=== PATIENT | female | born 1995 | race African-American/Black ===

== ENCOUNTER 2020-03-07 06:34 | Inpatient (IN) ==
[2020-03-07] MEDS ORDERED: ONDANSETRON 4 MG/2 ML VIAL IV PRN (07:12)
[2020-03-07] MEDS ORDERED: AMPICILLIN INJ 2,000 MG in SODIUM CHLORIDE 0.9% 100 ML IV ONE (07:16)
[2020-03-07] MEDS ORDERED: OXYTOCIN 20 UNIT in SODIUM CHLORIDE 0.9% 1,000 ML IV SCH (07:30)
[2020-03-07] MEDS ORDERED: LACTATED RINGERS 1,000 ML IV SCH (07:30)
[2020-03-07 07:41] LABS: Basophils % 0.2 % (0.0-0.8); Eosinophils % 0.1 % (0.00-10.9); Hematocrit 36.4 VOL% (35.7-47.0); Hemoglobin 12.1 GM/DL (12.0-16.0); Immature Granulocytes Absolute 0.17 #; Lymphocytes # 2.2 10*3/uL (1.4-4.0); Mean Corpuscular HGB Conc 33.2 GM/DL (32-36); Mean Corpuscular Volume 85.6 FL (87-102); Mean Platelet Volume 10.2 FL (9.6-12.0); Monocytes % 7.5 % (1.7-12.7); Neutrophils % 78.2 % (38.7-73.9); Platelet Count 247 T/CUMM (130-400); Red Blood Count 4.25 MC/CUMM (3.8-5.5); Red Cell Distribution Width 14.7 % (9.3-17.3); White Blood Count 16.6 T/CUMM (4-12)
[2020-03-07] MEDS ORDERED: SODIUM CHLORIDE 0.9% 100 ML IV ONE (07:41)
[2020-03-07] MEDS ORDERED: LACTATED RINGERS 250 ML IV PRN (07:55)
[2020-03-07] MEDS ORDERED: ePHEDrine 50 MG/ML VIAL IV PRN (07:55)
[2020-03-07] MEDS ORDERED: FAMOTIDINE 20 MG/2 ML VIAL IV ONE (07:55)
[2020-03-07] MEDS ORDERED: CITRIC ACID/SODIUM CITRATE 30 ML UDCUP PO ONE (07:55)
[2020-03-07] MEDS ORDERED: diphenhydrAMINE 50 MG/1 ML VIAL IV PRN ×2 (07:55)
[2020-03-07] MEDS ORDERED: NALOXONE 0.4 MG/ML VIAL IV PRN (07:55)
[2020-03-07] MEDS ORDERED: LACTATED RINGERS 1,000 ML IV ONE (07:55)
[2020-03-07] MEDS ORDERED: fentaNYL 2 MCG/ROPIV 0.2% EPID 100 ML EPIDURAL SCH (08:00)
[2020-03-07 08:04] LABS: Bilirubin,Total 0.4 MG/DL (0.2-1.0); Calcium 8.2 MG/DL (8.5-10.1); Total Protein 6.9 G/DL (6.4-8.3)
[2020-03-07] MEDS ORDERED: OXYTOCIN/LR 20 UNIT/1,000 ML BAG IV ONE (08:18)
[2020-03-07] MEDS ORDERED: LIDOCAINE 1% 50 ML VIAL ONE (08:20)
[2020-03-07] MEDS ORDERED: CARBOPROST TROMETHAMINE 250 MCG/ML AMP IM ONE (08:20)
[2020-03-07] MEDS ORDERED: METHYLERGONOVINE 0.2 MG/1 ML AMP ONE (08:20)
[2020-03-07] MEDS ORDERED: BUTORPHANOL 2 MG/ML VIAL IV ONE (08:55)
[2020-03-07] MEDS ORDERED: BUTORPHANOL 2 MG/ML VIAL ONE (08:59)
[2020-03-07 09:24] LABS: Cord Venous Blood HCO3 20.6 MMOL/L; Cord Venous Blood PCO2 50.7 MMHG; Cord Venous Blood PO2 30.2 MMHG
[2020-03-07 11:04] LABS: Apearance,Urine CLEAR (Clear); Bilirubin,Urine Negative (Negative); Blood, Urine Moderate mg/dL (Negative); Glucose,Urine (UA) Negative (Negative); Ketones,Urine Negative (Negative); Mucus,Urine Occasional /LPF (Occasional); Nitrite,Urine Negative (Negative); Protein,Urine Negative; RBC,Urine 117 /HPF (0-4); Squamous Epithelial Cell,Urine Occasional /HPF (0-10); Urine Color Yellow (Yellow); Urine Specific Gravity 1.015 (1.001-1.035); Urine Urobilinogen < 2.0 EU/DL (0.2-1.0); WBC,Urine 4 /HPF (0-6)
[2020-03-07] MEDS ORDERED: MEASLES/MUMPS/RUBELLA VACCINE 0.5 ML VIAL SUBCUT ONE (11:13)
[2020-03-07] MEDS ORDERED: LANOLIN 50% CREAM 0.3 OZ TUBE TOP PRN (11:13)
[2020-03-07] MEDS ORDERED: HYDROCORTISONE 2.5% RECTAL CREAM 30 GM TUBE TOP PRN (11:13)
[2020-03-07] MEDS ORDERED: DIPH/TET/ACEL PERT BOOSTER VACCINE 0.5 ML VIAL IM ONE (11:13)
[2020-03-07] MEDS ORDERED: OXYTOCIN 20 UNIT in SODIUM CHLORIDE 0.9% 1,000 ML IV ONE (11:13)
[2020-03-07] MEDS ORDERED: BISACODYL 10 MG SUPP RECTAL PRN (11:13)
[2020-03-07] MEDS ORDERED: oxyCODONE/ACETAMINOPHEN 5-325 MG TABLET PO PRN ×2 (11:13)
[2020-03-07] MEDS ORDERED: RHO(D) IMMUNE GLOBULIN 300 MCG SYRINGE IM ONE (11:13)
[2020-03-07] MEDS ORDERED: BENZOCAINE 20%/MENTHOL 0.5% SPRAY 56 GM CAN TOP PRN (11:13)
[2020-03-07] MEDS ORDERED: IBUPROFEN 800 MG TABLET PO PRN (11:13)
[2020-03-07] MEDS ORDERED: ACETAMINOPHEN 325 MG TABLET PO PRN (11:13)
[2020-03-07] MEDS ORDERED: WITCH HAZEL PADS 100/JAR TOP PRN (11:13)
[2020-03-07] MEDS: DOCUSATE SODIUM 100 MG CAPSULE PO SCH (21:20)
[2020-03-08 03:15] LABS: Basophils % 0.2 % (0.0-0.8); Eosinophils % 0.1 % (0.00-10.9); Hematocrit 29.8 VOL% (35.7-47.0); Hemoglobin 9.9 GM/DL (12.0-16.0); Immature Granulocytes % 0.9 %; Immature Granulocytes Absolute 0.19 #; Lymphocytes # 3.7 10*3/uL (1.4-4.0); Lymphocytes % 18.1 % (21.3-54.2); Mean Corpuscular HGB Conc 33.2 GM/DL (32-36); Mean Corpuscular Volume 85.9 FL (87-102); Mean Platelet Volume 10.4 FL (9.6-12.0); Monocytes % 8.1 % (1.7-12.7); Neutrophils % 72.6 % (38.7-73.9); Platelet Count 217 T/CUMM (130-400); Red Blood Count 3.47 MC/CUMM (3.8-5.5); White Blood Count 20.5 T/CUMM (4-12)
[2020-03-08 05:23] LABS: Atypical Lymphocytes Few; Eosinophils 1 % (0-10); Hypochromasia 1+; Lymphocytes 21 % (20-55); Microcytosis Slight; Platelet Estimate Adequate; Segmented Neutrophils 72 % (50-85); Total Cells Counted 100
[2020-03-08] MEDS: DOCUSATE SODIUM 100 MG CAPSULE PO SCH ×2 (09:45→21:46)
[2020-03-08] MEDS: POTASSIUM CHLORIDE 20 MEQ TABLET PO SCH (21:46)
[2020-03-09] MEDS: DOCUSATE SODIUM 100 MG CAPSULE PO SCH (09:03)
[2020-03-09] MEDS: POTASSIUM CHLORIDE 20 MEQ TABLET PO SCH (09:05)
[2020-03-09 11:15] VITALS: BP 118/52
== END 2020-03-09 12:15 | disposition home or self-care (01) | DRG 560 ==
LOC: N.LDOUT 06:34 → N.LD 06:35 → N.OB 11:02
PROVIDERS: ADMIT Obstetrics & Gynecology; ATTEND Obstetrics & Gynecology

== ENCOUNTER 2022-05-18 23:52 | Inpatient (IN) ==
[2022-05-19] MEDS ORDERED: LACTATED RINGERS 250 ML IV ONE (00:02)
[2022-05-19] MEDS ORDERED: METHYLERGONOVINE 0.2 MG/1 ML AMP IM PRN (00:02)
[2022-05-19] MEDS ORDERED: MEPERIDINE 50 MG/1 ML VIAL IV PRN (00:02)
[2022-05-19] MEDS ORDERED: ONDANSETRON 4 MG/2 ML VIAL IV PRN (00:02)
[2022-05-19] MEDS ORDERED: OXYTOCIN/LR 20 UNIT/1,000 ML BAG IV ONE ×2 (00:02→16:46)
[2022-05-19] MEDS ORDERED: TRANEXAMIC ACID 1,000 MG in SODIUM CHLORIDE 0.9% 100 ML IV PRN (00:02)
[2022-05-19] MEDS ORDERED: miSOPROStoL 200 MCG TABLET RECTAL PRN (00:02)
[2022-05-19] MEDS ORDERED: CARBOPROST TROMETHAMINE 250 MCG/ML AMP IM PRN (00:02)
[2022-05-19] MEDS ORDERED: BUTORPHANOL 2 MG/ML VIAL IV PRN (00:02)
[2022-05-19] MEDS ORDERED: LACTATED RINGERS 500 ML IV PRN (00:02)
[2022-05-19 00:44] LABS: Basophils % 0.1 % (0.0-0.8); Eosinophils % 0.3 % (0.00-10.9); Hemoglobin 11.2 GM/DL (12.0-16.0); Immature Granulocytes % 1.2 %; Immature Granulocytes Absolute 0.13 #; Lymphocytes # 2.9 10*3/uL (1.4-4.0); Mean Corpuscular HGB Conc 33.9 GM/DL (32-36); Mean Corpuscular Volume 77.8 FL (87-102); Mean Platelet Volume 9.6 FL (9.6-12.0); Monocytes # 0.7 10*3/uL (0.11-0.8); Monocytes % 6.4 % (1.7-12.7); NRBC # 0.03 10*3/uL; Platelet Count 270 T/CUMM (130-400); Red Blood Count 4.24 MC/CUMM (3.8-5.5); Red Cell Distribution Width 15.9 % (9.3-17.3); White Blood Count 10.8 T/CUMM (4-12)
[2022-05-19 00:54] LABS: Bacteria,Urine Occasional /HPF (Few); Glucose,Urine (UA) Negative (Negative); Mucus,Urine Occasional /LPF (Occasional); Protein,Urine Negative (Negative); RBC,Urine 10 /HPF (0-4); Squamous Epithelial Cell,Urine Occasional /HPF (0-10); Urine Appearance Clear (Clear); Urine Color Yellow (Yellow); Urine Specific Gravity 1.015 (1.001-1.035)
[2022-05-19 00:55] LABS: Bilirubin,Urine Negative (Negative); Blood, Urine Trace mg/dL (Negative); Ketones,Urine Negative (Negative); Nitrite,Urine Negative (Negative); Urine Urobilinogen 0.2 eU/dL (<2.0)
[2022-05-19] MEDS: LACTATED RINGERS 1,000 ML IV SCH ×3 (01:24→13:18)
[2022-05-19] MEDS ORDERED: OXYTOCIN/LR 20 UNIT/1,000 ML BAG IV SCH (06:30)
[2022-05-19] MEDS ORDERED: PROMETHAZINE 25 MG/1 ML VIAL IM PRN (08:19)
[2022-05-19] MEDS ORDERED: hydrOXYzine HCL 25 MG/1 ML VIAL IM PRN (08:19)
[2022-05-19] MEDS ORDERED: CITRIC ACID/SODIUM CITRATE 30 ML UDCUP PO ONE (08:19)
[2022-05-19] MEDS ORDERED: NALOXONE 0.4 MG/ML VIAL IV PRN (08:19)
[2022-05-19] MEDS ORDERED: diphenhydrAMINE 50 MG/1 ML VIAL IV PRN (08:19)
[2022-05-19] MEDS ORDERED: FAMOTIDINE 20 MG/2 ML VIAL IV ONE (08:19)
[2022-05-19] MEDS ORDERED: ePHEDrine 50 MG/ML VIAL IV PRN (08:19)
[2022-05-19] MEDS ORDERED: fentaNYL 2 MCG/ROPIV 0.2% EPID 100 ML EPIDURAL SCH (08:30)
[2022-05-19] MEDS ORDERED: miSOPROStoL 200 MCG TABLET ONE (10:57)
[2022-05-19] MEDS ORDERED: METHYLERGONOVINE 0.2 MG/1 ML AMP ONE (10:58)
[2022-05-19] MEDS ORDERED: CARBOPROST TROMETHAMINE 250 MCG/ML AMP IM ONE (10:58)
[2022-05-19] MEDS ORDERED: ceFAZolin 3,000 MG in SYRINGE 1 EACH IV ONE (14:21)
[2022-05-19] MEDS ORDERED: OXYTOCIN 10 UNIT/ML VIAL IM ONE (14:22)
[2022-05-19] MEDS ORDERED: OXYTOCIN/LR 30 UNIT/1,000 ML BAG IV ONE (14:22)
[2022-05-19 14:45] LABS: Cord Arterial Blood HCO3 18.6 MMOL/L
[2022-05-19 14:47] LABS: Cord Venous Blood HCO3 19.4 MMOL/L; Cord Venous Blood PCO2 45.1 MMHG; Cord Venous Blood PO2 36.5
[2022-05-19] MEDS ORDERED: MEASLES/MUMPS/RUBELLA VACCINE 0.5 ML VIAL SUBCUT ONE (16:46)
[2022-05-19] MEDS ORDERED: WITCH HAZEL PADS 100/JAR TOP PRN (16:46)
[2022-05-19] MEDS ORDERED: LANOLIN 50% CREAM 0.3 OZ TUBE TOP PRN (16:46)
[2022-05-19] MEDS ORDERED: DIPH/TET/ACEL PERT BOOSTER VACCINE 0.5 ML VIAL IM ONE (16:46)
[2022-05-19] MEDS ORDERED: RHO(D) IMMUNE GLOBULIN 300 MCG SYRINGE IM ONE (16:46)
[2022-05-19] MEDS ORDERED: BENZOCAINE 20%/MENTHOL 0.5% SPRAY 56 GM CAN TOP PRN (16:46)
[2022-05-19] MEDS ORDERED: ACETAMINOPHEN 325 MG TABLET PO PRN (16:46)
[2022-05-19] MEDS ORDERED: HYDROCORTISONE 2.5% RECTAL CREAM 30 GM TUBE TOP PRN (16:46)
[2022-05-19] MEDS ORDERED: oxyCODONE/ACETAMINOPHEN 5-325 MG TABLET PO PRN ×2 (16:46)
[2022-05-19] MEDS ORDERED: BISACODYL 10 MG SUPP RECTAL PRN (16:46)
[2022-05-19] MEDS: POTASSIUM CHLORIDE 20 MEQ TABLET PO PRN ×3 (17:26→22:47)
[2022-05-19] MEDS: DOCUSATE SODIUM 100 MG CAPSULE PO SCH (21:23)
[2022-05-19] MEDS: IBUPROFEN 800 MG TABLET PO PRN (23:54)
[2022-05-20] MEDS: POTASSIUM CHLORIDE 20 MEQ TABLET PO PRN ×2 (00:24→23:58)
[2022-05-20 06:31] LABS: Basophils % 0.2 % (0.0-0.8); Eosinophils % 0.2 % (0.00-10.9); Hematocrit 24.6 VOL% (35.7-47.0); Hemoglobin 8.2 GM/DL (12.0-16.0); Immature Granulocytes % 0.9 %; Immature Granulocytes Absolute 0.16 #; Lymphocytes # 3.2 10*3/uL (1.4-4.0); Lymphocytes % 18.4 % (21.3-54.2); Mean Corpuscular HGB Conc 33.3 GM/DL (32-36); Mean Corpuscular Volume 80.1 FL (87-102); Mean Platelet Volume 9.5 FL (9.6-12.0); Monocytes # 1.5 10*3/uL (0.11-0.8); Monocytes % 8.4 % (1.7-12.7); Neutrophils % 71.9 % (38.7-73.9); Platelet Count 191 T/CUMM (130-400); Red Blood Count 3.07 MC/CUMM (3.8-5.5); Red Cell Distribution Width 16.1 % (9.3-17.3); White Blood Count 17.5 T/CUMM (4-12)
[2022-05-20] MEDS ORDERED: POTASSIUM CHLORIDE 20 MEQ TABLET PO ONE (09:22)
[2022-05-20] MEDS: FERROUS SULFATE 325 MG TABLET PO SCH ×2 (09:25→21:56)
[2022-05-20] MEDS: DOCUSATE SODIUM 100 MG CAPSULE PO SCH ×2 (09:25→21:57)
[2022-05-20] MEDS: valACYclovir 500 MG TABLET PO SCH ×2 (09:27→09:50)
[2022-05-20] MEDS: IBUPROFEN 800 MG TABLET PO PRN (12:17)
[2022-05-21] MEDS: POTASSIUM CHLORIDE 20 MEQ TABLET PO PRN (02:10)
[2022-05-21] MEDS: IBUPROFEN 800 MG TABLET PO PRN (02:10)
[2022-05-21] MEDS: FERROUS SULFATE 325 MG TABLET PO SCH (08:50)
[2022-05-21] MEDS: DOCUSATE SODIUM 100 MG CAPSULE PO SCH (08:50)
[2022-05-21 12:21] VITALS: BP 133/70
== END 2022-05-21 12:33 | disposition home or self-care (01) | DRG 560 ==
LOC: N.LD 23:52 → N.OB 05-19 17:18
PROVIDERS: ADMIT Obstetrics & Gynecology; ATTEND Obstetrics & Gynecology